=== PATIENT | female | born 1970 | race Two or more races ===

== ENCOUNTER 2019-09-22 00:11 | Emergency (ER) | payer MEDICAID ==
[~2019-09-22] VITALS: Ht 162.6 cm; Wt 104.3 kg
[2019-09-22 00:22] VITALS: BP 132/87
[2019-09-22] MEDS ORDERED: AMOX/CLAVULANATE 875 MG TABLET ONE (01:19)
[2019-09-22] MEDS ORDERED: HYDROCODONE/APAP 5/325MG 1 EACH TABLET ONE (01:19)
--- NOTE | 2019-09-22 01:27 | NUR ---
pt is medically stable for d/c . medicated as ordered . Patient discharged to home in stable condition. Written and verbal after care instructions given. Patient verbalizes understanding of instruction.
[2019-09-22] MEDS ORDERED: AMOX/CLAVULANATE 875 MG TABLET PO ONE (01:30)
[2019-09-22] MEDS ORDERED: HYDROCODONE/APAP 5/325MG 1 EACH TABLET PO ONE (01:30)
== END 2019-09-22 01:30 | disposition home or self-care (01) ==
LOC: ER 00:12
DX: K08.89 Other specified disorders of teeth and supporting structures (principal)

== ENCOUNTER 2022-10-30 11:18 | Emergency (ER) | payer MEDICAID ==
[~2022-10-30] VITALS: Ht 152.4 cm; Wt 99.8 kg
[2022-10-30 11:49] VITALS: BP 148/77; TEMP 98.4
[2022-10-30] MEDS ORDERED: IBUPROFEN 600 MG TABLET ONE (13:30)
[2022-10-30] MEDS ORDERED: IBUPROFEN 600 MG TABLET PO ONE (13:30)
[2022-10-30 15:54] VITALS: O2SAT 100
== END 2022-10-30 15:54 | disposition home or self-care (01) ==
LOC: ER 11:18
DX: M79.674 Pain in right toe(s) (principal)
CPT/HCPCS: 73630-TC

== ENCOUNTER 2023-03-09 10:03 | Emergency (ER) | payer MEDICAID ==
[~2023-03-09] VITALS: Ht 157.5 cm; Wt 114.8 kg
[2023-03-09 10:03] VITALS: TEMP 98
[2023-03-09 11:11] VITALS: BP 121/70; O2SAT 98
== END 2023-03-09 11:11 | disposition home or self-care (01) ==
LOC: ER 10:03
DX: N64.4 Mastodynia (principal)

== ENCOUNTER 2023-12-29 20:50 | Emergency (ER) | payer OTHER ==
[~2023-12-29] VITALS: Ht 154.9 cm; Wt 111.6 kg
[2023-12-29] MEDS ORDERED: KETOROLAC TROMETHAMINE INJ 30 MG/ML VIAL ONE (23:29)
[2023-12-29] MEDS ORDERED: diphenhydrAMINE HCL 50 MG/ML VIAL ONE (23:29)
[2023-12-29] MEDS ORDERED: methylPREDNISolone SOD SUCC 125 MG/2ML VIAL ONE (23:29)
[2023-12-29] MEDS ORDERED: FAMOTIDINE/PF INJ 20 MG/2 ML VIAL IV ONE (23:30)
[2023-12-29 23:42] LABS: BASOPHILS % (AUTO) 0.5 % (0.0-2.0); EOSINOPHILS % (AUTO) 22.7 % (0.0-6.0); HEMATOCRIT 37 % (33-45); HEMOGLOBIN 12.5 g/dL (11.5-14.8); LYMPHOCYTES # (AUTO) 1.2 K/uL (0.8-4.8); LYMPHOCYTES % (AUTO) 13.7 % (20.0-44.0); MEAN CORPUSCULAR HEMOGLOBIN 29 PG (26.0-33.0); MEAN CORPUSCULAR HGB CONC 34 g/dl (31.0-36.0); MEAN CORPUSCULAR VOLUME 86 fL (82-100); MONOCYTES # (AUTO) 0.4 K/uL (0.1-1.30); MONOCYTES % (AUTO) 4.8 % (2.0-12.0); NEUTROPHILS % (AUTO) 58.3 % (43.0-81.0); PLATELET COUNT (AUTO) 217 K/uL (150-450); RED BLOOD CELL COUNT(AUTO) 4.29 MIL/uL (4.0-5.2); WHITE BLOOD COUNT (AUTO) 8.6 K/uL (4.3-11.0)
[2023-12-29 23:47] LABS: ERYTHROCYTE SEDIMENTATION RATE 21 MM/HR (0-30)
[2023-12-30] MEDS: KETOROLAC TROMETHAMINE INJ 30 MG/ML VIAL IV ONE (00:04)
[2023-12-30] MEDS: diphenhydrAMINE HCL 50 MG/ML VIAL IV ONE (00:04)
[2023-12-30] MEDS: methylPREDNISolone SOD SUCC 125 MG/2ML VIAL IV ONE (00:04)
[2023-12-30] MEDS: FAMOTIDINE/PF INJ 20 MG/2 ML VIAL IV ONE (00:04)
[2023-12-30] MEDS: IV NS 0.9% 1,000 ML IV ONE (00:05)
[2023-12-30 00:09] LABS: CALCIUM, SERUM 8.9 mg/dL (8.5-10.1); CREATININE 0.6 mg/dL (0.6-1.3); POTASSIUM 3.6 mmol/L (3.5-5.1)
[2023-12-30 00:21] LABS: ALBUMIN 3.5 g/dL (3.4-5.0); BILIRUBIN,TOTAL 0.3 mg/dL (0.2-1.0); TOTAL PROTEIN, SERUM 7.3 g/dL (6.4-8.2)
[2023-12-30] MEDS ORDERED: PRED50TA PO (00:42)
[2023-12-30] MEDS ORDERED: DIPH50CA4 PO (00:42)
[2023-12-30 00:54] VITALS: BP 138/81; TEMP 98; O2SAT 98
[2023-12-30 04:06] LABS: EOSINOPHILS % (MANUAL) 26 % (0-4); LYMPHOCYTES % (MANUAL) 16 % (16-48); MONOCYTES % (MANUAL) 6 % (0-11.0); NEUTROPHILS % (MANUAL) 52 (42-76); PLATELET ESTIMATE ADEQUATE
== END 2023-12-30 00:54 | disposition home or self-care (01) ==
LOC: ER 20:55
DX: L23.89 Allergic contact dermatitis due to other agents (principal); T42.6X5A Adverse effect of other antiepileptic and sedative-hypnotic drugs, initial encounter; R22.33 Localized swelling, mass and lump, upper limb, bilateral; Z79.52 Long term (current) use of systemic steroids; Y92.89 Other specified places as the place of occurrence of the external cause
CPT/HCPCS: 99284; 85025; 85652; 36415; 80053; 96374; 96375; 85007; J1200; J3490; J2919; J1885; J7030